=== PATIENT | male | born 1965 | race Caucasian/White ===

== ENCOUNTER → 2019-01-27 | Outpatient (CLI) | payer OTHER, BC | LOC: RAD 11:29 | DX: M79.604 Pain in right leg (principal); R06.02 Shortness of breath; R60.0 Localized edema; Z95.0 Presence of cardiac pacemaker ==

== ENCOUNTER → 2019-04-16 | Outpatient (CLI) | payer OTHER, BC | LOC: ULTRA 14:13 | DX: I82.412 Acute embolism and thrombosis of left femoral vein (principal); I82.432 Acute embolism and thrombosis of left popliteal vein; I83.92 Asymptomatic varicose veins of left lower extremity ==

== ENCOUNTER → 2020-11-05 | Outpatient (CLI) | payer OTHER, BC | LOC: LAB 13:45 | PROVIDERS: ATTEND Family Medicine | DX: Z20.828 Contact with and (suspected) exposure to other viral communicable diseases (principal) ==